=== PATIENT | male | born 2000 | race Caucasian/White ===

== ENCOUNTER 2018-10-21 09:05 | Emergency (ER) | payer SELFPAY ==
[~2018-10-21] VITALS: Wt 79.0 kg
[~2018-10-21 09:05] MED LIST: ACET325T33 PO; AMOX500C2 PO; PRED20TA PO
[2018-10-21 09:10] VITALS: BP 113/56; PULSE 89; RESP 18
[2018-10-21] MEDS ORDERED: PSEU-79 PO (10:22)
[2018-10-21] MEDS ORDERED: IBUP-1542 PO (10:22)
--- NOTE | 2018-10-21 10:47 | ERD ---
ER Documentation Chief Complaint Chief Complaint SORE THROAT HPI 18-year-old male presenting with sore throat and congestion. Patient has a mild runny nose. He has not taken medication and denies any fevers. He states his symptoms have been going on for a few months. He has no cough. Denies medical problems. NKDA. Surgical history denies. Social history denies ROS All systems reviewed and are negative except as per history of present illness. Medications Home Meds Active Scripts Pseudoephedrine Hcl* (Suphedrin*) 30 Mg Tablet, 30 MG PO Q6 PRN for CONGESTION, #30 TAB Prov:MOOK BROWN PA-C 10/21/18 Ibuprofen* (Motrin*) 600 Mg Tab, 600 MG PO Q6, #30 TAB Prov:MOOK BROWN PA-C 10/21/18 Amoxicillin* (Amoxicillin*) 500 Mg Cap, 500 MG PO TID for 7 Days, #21 CAP 0 Refills Prov:JEOVANY MELLO PA-C 04/22/16 Prednisone* (Prednisone*) 20 Mg Tab, 40 MG PO DAILY for 4 Days, #8 TAB 0 Refills Prov:JEOVANY MELLO PA-C 04/22/16 Acetaminophen* (Tylenol*) 325 Mg Tablet, 2 TAB PO Q8 PRN for PAIN AND OR ELEVATED TEMP, #20 TAB Prov:MOOK BROWN PA-C 03/14/16 Reported Medications [None] No Conflict Check 10/23/09 Allergies Allergies: Coded Allergies: No Known Drug Allergy (Verified Allergy, Unknown, 03/26/16) PMhx/Soc History of Surgery: No Anesthesia Reaction: No Hx Neurological Disorder: No Hx Respiratory Disorders: No Hx Cardiac Disorders: No Hx Psychiatric Problems: No Hx Miscellaneous Medical Probl: No Hx Alcohol Use: No Hx Substance Use: No Hx Tobacco Use: No Smoking Status: Never smoker FmHx Family History: No diabetes, No coronary disease, No other Physical Exam Vitals Vital Signs Date Temp Pulse Resp B/P (MAP) Pulse Ox O2 O2 Flow FiO2 Time Delivery Rate 10/21/18 98.1 89 18 113/56 99 09:10 (75) Physical Exam GENERAL: The patient is well-appearing, well-nourished, in no acute distress HEENT: Atraumatic. Conjunctivae are pink. Pupils equal, round, and reactive to light. There is no scleral icterus. Tympanic membranes clear bilaterally. Oropharynx clear. CHEST: Clear to auscultation bilaterally. There are no rales, wheezes or rhonchi. HEART: Regular rate and rhythm. No murmurs, clicks, rubs or gallops. Procedures/MDM MDM: 18-year-old male presenting with sore throat. Patient exam is non- concerning and I will suspicion for bacterial infection. Patient is discharged with supportive medications. I do not feel there is indication for antibiotics or further imaging. Patient has nasal congestion which is likely causing irritation to the throat. Patient is discharged stricter precautions and told to follow-up with primary care within 1-2 days for close evaluation. All questions answered at discharge Departure Diagnosis: Primary Impression: Sore throat Condition: Stable Patient Instructions: Self-Care for Sore Throats Referrals: REGINA BELLAMY MD (PCP) Additional Instructions: FOLLOW UP WITH YOUR PRIMARY CARE PHYSICIAN TOMORROW.Return to this facility if you are not improving as expected. MOOK BROWN PA-C Oct 21, 2018 10:47
== END 2018-10-21 10:37 | disposition home or self-care (01) ==
LOC: FTE 09:05
DX: J02.9 Acute pharyngitis, unspecified (principal)
CPT/HCPCS: 99282

== ENCOUNTER 2019-04-19 10:24 | Emergency (ER) | payer OTHER ==
[~2019-04-19] VITALS: Ht 170.2 cm; Wt 70.4 kg
[~2019-04-19 10:24] MED LIST changes: +HYDR-3029 PO; +IBUP-1542 PO; +PSEU-79 PO
[2019-04-19 10:39] VITALS: Ht 170.2 cm; Wt 70.4 kg
--- NOTE | 2019-04-19 13:47 | ERD ---
ER Documentation Chief Complaint Chief Complaint sorethroat x2 days, speaking full sentences HPI 18-year-old male presenting with sore throat x2 days. Patient states that he has heart palpitations that started 2 days ago. This started after he used crystal meth. He states he snorted it. He is used crystal meth 2 years ago however stopped and has started again. Denies any fevers. Denies visual changes. Has not taken any other medications. Dates he feels generally weak. He has not been wanting to eat due to the crystal meth use. Denies other medical pounds. NKDA. Surgical history denies. Social history denies. Drug use crystal meth ROS All systems reviewed and are negative except as per history of present illness. Medications Home Meds Active Scripts Hydroxyzine Hcl* (Hydroxyzine Hcl*) 10 Mg Tablet, 10 MG PO Q6H PRN for ANXIETY, #30 TAB Prov:MOOK BROWN PA-C 04/19/19 Pseudoephedrine Hcl* (Suphedrin*) 30 Mg Tablet, 30 MG PO Q6 PRN for CONGESTION, #30 TAB Prov:MOOK BROWN PA-C 10/21/18 Ibuprofen* (Motrin*) 600 Mg Tab, 600 MG PO Q6, #30 TAB Prov:MOOK BROWN PA-C 10/21/18 Amoxicillin* (Amoxicillin*) 500 Mg Cap, 500 MG PO TID for 7 Days, #21 CAP 0 Refills Prov:JEOVANY MELLO PA-C 04/22/16 Prednisone* (Prednisone*) 20 Mg Tab, 40 MG PO DAILY for 4 Days, #8 TAB 0 Refills Prov:JEOVANY MELLO PA-C 04/22/16 Acetaminophen* (Tylenol*) 325 Mg Tablet, 2 TAB PO Q8 PRN for PAIN AND OR ELEVATED TEMP, #20 TAB Prov:MOOK BROWN PA-C 03/14/16 Reported Medications [None] No Conflict Check 10/23/09 Allergies Allergies: Coded Allergies: No Known Drug Allergy (Verified Allergy, Unknown, 03/26/16) PMhx/Soc History of Surgery: No Anesthesia Reaction: No Hx Neurological Disorder: No Hx Respiratory Disorders: No Hx Cardiac Disorders: No Hx Psychiatric Problems: No Hx Miscellaneous Medical Probl: No Hx Alcohol Use: No Hx Substance Use: No Hx Tobacco Use: No FmHx Family History: No diabetes, No coronary disease, No other Physical Exam Vitals Vital Signs Date Temp Pulse Resp B/P (MAP) Pulse Ox O2 O2 Flow FiO2 Time Delivery Rate 04/19/19 98.3 101 18 136/63 100 10:39 (87) Physical Exam GENERAL: The patient is well-appearing, well-nourished, in no acute distress HEENT: Atraumatic. Conjunctivae are pink. Pupils equal, round, and reactive to light. There is no scleral icterus. Tympanic membranes clear bilaterally. Oropharynx clear. CHEST: Clear to auscultation bilaterally. There are no rales, wheezes or rhonchi. HEART: Regular rate and rhythm. No murmurs, clicks, rubs or gallops. EXTREMITIES: Equal pulses bilaterally. There is no peripheral clubbing, cyanosis or edema. No focal swelling or erythema. Full range of motion. Grossly neurovascularly intact. NEUROLOGIC: Alert and oriented. Cranial nerves II through XII intact. Motor strength in all 4 extremities with 5 out of 5 strength. Sensation grossly intact. Result Diagram: 04/19/19 1117 04/19/19 1117 Results 24 hrs Laboratory Tests Test 04/19/19 11:17 White Blood Count 8.0 10^3/ul Red Blood Count 5.53 10^6/ul Hemoglobin 16.2 g/dl Hematocrit 46.7 % Mean Corpuscular Volume 84.4 fl Mean Corpuscular Hemoglobin 29.3 pg Mean Corpuscular Hemoglobin Concent 34.7 g/dl Red Cell Distribution Width 12.2 % Platelet Count 280 10^3/UL Mean Platelet Volume 9.9 fl Immature Granulocytes % 0.100 % Neutrophils % 73.7 % Lymphocytes % 15.2 % Monocytes % 9.0 % Eosinophils % 1.6 % Basophils % 0.4 % Nucleated Red Blood Cells % 0.0 /100WBC Immature Granulocytes # 0.010 10^3/ul Neutrophils # 5.9 10^3/ul Lymphocytes # 1.2 10^3/ul Monocytes # 0.7 10^3/ul Eosinophils # 0.1 10^3/ul Basophils # 0.0 10^3/ul Nucleated Red Blood Cells # 0.0 10^3/ul Sodium Level 143 mmol/L Potassium Level 3.4 mmol/L Chloride Level 103 mmol/L Carbon Dioxide Level 25 mmol/L Anion Gap 15 Blood Urea Nitrogen 12 mg/dl Creatinine 0.88 mg/dl Est Glomerular Filtrat Rate mL/min > 60 mL/min Glucose Level 97 mg/dl Calcium Level 9.8 mg/dl Total Bilirubin 1.0 mg/dl Direct Bilirubin 0.00 mg/dl Indirect Bilirubin 1.0 mg/dl Aspartate Amino Transf (AST/SGOT) 30 IU/L Alanine Aminotransferase (ALT/SGPT) 30 IU/L Alkaline Phosphatase 81 IU/L Troponin I < 0.012 ng/ml Total Protein 8.7 g/dl Albumin 5.0 g/dl Globulin 3.70 g/dl Albumin/Globulin Ratio 1.35 Procedures/MDM EKG: Rate/Rhythm: Sinus tachycardia. 115 bpm QRS, ST, T-waves: No changes consistent w/ acute ischemia Impression: No evidence of ischemia or arrhythmia DIAGNOSTIC IMAGING REPORT Patient: PER ROBERTS : 2000 Age: 18 Sex: M MR #: [id number] DOS: 04/19/19 1056 Ordering MD: DARCI BROWN PA-C Location: [facility] Room/Bed: PROCEDURE: XR Chest. CLINICAL INDICATION: Abdominal pain TECHNIQUE: Portable single view of the chest COMPARISON: None. FINDINGS: The lungs are free of focal infiltrate. The pleural spaces are clear without effusion or pneumothorax. The heart size and mediastinal contours are within normal limits. There is some air that is seen within the stomach and adjacent splenic flexure in the left upper quadrant. Osseous structures appear intact. IMPRESSION: No acute process is seen within the chest. MDM: 18-year-old male presenting with heart palpitations. Patient blood work is within normal limits exam is non-concerning. Patient likely has reactive symptoms secondary to crystal meth use. Patient was seen by social work provider in the emergency room. Patient is discharged with strict ER precautions and told to follow-up with primary care within 1 to 2 days for close evaluation. Patient is told symptoms change or worsen to return immediately to the ER. I have low suspicion for PE. Have low suspicion for cardiac emergency. I have low suspicion for electrolyte imbalance. I have low suspicion for pulmonary emergency. All questions answered at discharge Departure Diagnosis: Primary Impression: Palpitations Condition: Stable Patient Instructions: Palpitations Referrals: [facility] YOU HAVE RECEIVED A MEDICAL SCREENING EXAM AND THE RESULTS INDICATE THAT YOU DO NOT HAVE A CONDITION THAT REQUIRES URGENT TREATMENT IN THE EMERGENCY DEPARTMENT. FURTHER EVALUATION AND TREATMENT OF YOUR CONDITION CAN WAIT UNTIL YOU ARE SEEN IN YOUR DOCTORS OFFICE WITHIN THE NEXT 1-2 DAYS. IT IS YOUR RESPONSIBILITY TO MAKE AN APPOINTMENT FOR FOLOW-UP CARE. IF YOU HAVE A PRIMARY DOCTOR --you should call your primary doctor and schedule an appointment IF YOU DO NOT HAVE A PRIMARY DOCTOR YOU CAN CALL OUR PHYSICIAN REFERRAL HOTLINE AT IF YOU CAN NOT AFFORD TO SEE A PHYSICIAN YOU CAN CHOSE FROM THE FOLLOWING [facility] [address] [facility]. [facility] [address] [facility]. [facility] [address] [facility] [facility] [address] [facility]. [facility] [address] [facility]. [facility] [address] Additional Instructions: FOLLOW UP WITH YOUR PRIMARY CARE PHYSICIAN TOMORROW.Return to this facility if you are not improving as expected. MOOK BROWN PA-C Apr 19, 2019 13:47
[2019-04-19 14:06] VITALS: BP 113/70; PULSE 94; RESP 19
== END 2019-04-19 14:08 | disposition home or self-care (01) ==
LOC: FTE 10:24
DX: R00.2 Palpitations (principal)
CPT/HCPCS: 36415; 71045; 80053; 84484; 85025; 93005